=== PATIENT | female | born 1960 | race Caucasian/White ===

== ENCOUNTER 2018-10-11 06:27 | Emergency (ER) | payer OTHER, SELFPAY ==
[2018-10-11 06:30] VITALS: BP 147/96; PULSE 92; RESP 16; TEMP 36.7; O2SAT 98; BMI 26.7
--- NOTE | 2018-10-11 06:50 | EKG12_ITS ---
Test Reason : BACK/FLANK PAIN Blood Pressure : / mmHG Vent. Rate : 063 BPM Atrial Rate : 063 BPM P-R Int : 130 ms QRS Dur : 076 ms QT Int : 378 ms P-R-T Axes : 063 047 042 degrees QTc Int : 386 ms Normal sinus rhythm Normal ECG Confirmed by JUDI ABREU, DEVON ([id number]), subeditor [employer] ([id number]) on 10/14/2018 10:13:25 AM Referred By: LAVONNE Confirmed By:DEVON LAU MD
--- NOTE | 2018-10-11 06:51 | CT_ITS ---
STUDY: CT ABDOMEN AND PELVIS WITHOUT CONTRAST REASON FOR EXAM: Female, 58 years old. 1 week history of intermittent right flank pain. RADIATION DOSAGE (If Supplied By Facility): CTDIvol = ( 6.53 ) mGy, DLP = ( 293.54 ) mGycm TECHNIQUE: Transaxial images were obtained from the dome of the diaphragm to the symphysis pubis without oral contrast, and without intravenous contrast. Sagittal and coronal images were reconstructed. Individualized dose optimization techniques were used for this CT. COMPARISON: None. FINDINGS: The visualized lung bases are unremarkable. The visualized portions of the heart are within normal limits. There is a 1.5 cm x 1.5 cm cyst in the midportion of the right lobe of the liver. A 1 cm cyst is also seen in the left lobe of the liver. Normal gallbladder and extrahepatic biliary system. Normal spleen. Normal pancreas. Normal bilateral adrenal glands. Normal right kidney. Normal left kidney. Normal visualized stomach. Normal small intestine. There are scattered colonic diverticula consistent with diverticulosis. The appendix is visualized and appears normal. There is scattered atherosclerotic calcification of the abdominal aorta, without a demonstrated aneurysm. Normal inferior vena cava. Normal retroperitoneum. Normal urinary bladder. Phleboliths are seen in the pelvis. There is a small umbilical hernia containing fat. There are mild degenerative changes of the visualized lumbar spine. CT/Abdomen/Pelvis without Cont IMPRESSION: Small cysts in the liver. Electronically Signed: Willard Haas MD at 8:53 EST Tel [phone], Service support ,
--- NOTE | 2018-10-11 06:56 | NURSING ---
NO OLD EKGS
[2018-10-11 07:00] LABS: Absolute Neutrophil Count 5.1 X10^3/uL (2.0-7.7); Basophil# 0.03 X10^3/uL; Basophil% 0.4 % (0-1); Eosinophils% 1.3 % (0-5); Hematocrit 45.4 % (37-47); Hemoglobin 15.3 g/dl (12.0-15.0); Lymphocyte % 28.2 % (19-41); Mean Corp Hgb Conc 33.7 g/gl (32-36); Mean Corpuscular Hgb 31.2 pg (27.0-32.0); Mean Corpuscular Volume 92.5 fL (81-99); Mean Platelet Vol. 11.1 fl (6.2-12.0); Monocyte# 0.37 X10^3/uL; Monocyte% 4.7 % (0-10); Neutrophil % 65.3 % (47-70); Platelet Count 208 K/mm3 (150-450); RBC Distribution Width CV 12.2 % (11.6-14.6); Red Blood Count 4.91 M/mm3 (4.2-5.4); White Blood Count 7.8 K/mm3 (4.4-11.0)
[2018-10-11 07:01] LABS: POSITIVE COUNT NO; POSITIVE DIFFERENTIAL NO; POSITIVE MORPHOLOGY NO
[2018-10-11] MEDS: Ketorolac 30 MG/ML Syringe IV (07:02)
[2018-10-11] MEDS: 0.9% Normal Saline 1,000 ML 1000 ML IV (07:02)
[2018-10-11] MEDS: Ondansetron 4 MG/2 ML Vial IV (07:02)
--- NOTE | 2018-10-11 07:19 | ED.RN ---
PT REQUESTS TO BE ABLE TO WALK AROUND. IV PLACED ON POLE TO PROVIDE ABILITY TO AMBULATE. WILL MONITOR FOR PAIN MED EFFECTIVENESS
[2018-10-11 07:25] LABS: ALB/GLOB Ratio 1.3 RATIO (0.9-2.4); AST(SGOT) 13 U/L (15-37); Alanine Aminotransfer ALT/SGPT 21 U/L (13-56); Alkaline Phosphatase 82 U/L (45-117); Anion Gap 9 (5-15); BUN 12 mg/dL (7-18); BUN/Creat Ratio 12.9 RATIO (10-20); Calcium,Total 8.5 mg/dL (8.5-10.1); Chloride 103 mmol/L (98-107); Creatinine, Serum 0.93 mg/dL (0.55-1.02); EST Glomerular Filtration Rate 66 mL/min (>60); Est Glom Filt Rate - Afr Amer 79 mL/min (>60); Estimated Creatinine Clearance 49.76 ml/min; Globulin 3.1 g/dL (2.2-4.2); Glucose 132 mg/dL (74-106); Lipase 312 U/L (73-393); Potassium 3.8 mmol/L (3.5-5.1); Protein, Total 7.1 g/dL (6.4-8.2); Sodium Level 140 mmol/L (136-145)
[2018-10-11 09:16] LABS: Color, Urine Yellow (Yellow); Glucose, Dipstick Normal (Normal); Ketone-Dipstick 5 mg/dl (Negative); Leukocyte Esterase-Dipstick 25 /ul (Negative); Nitrite-Dipstick Negative (Negative); Occult Blood-Urine 10 /ul (Negative); Protein-Dipstick Negative (Negative); Specific Gravity, Urine 1.025 (1.002-1.030); Urine Bilirubin Dipstick Negative (Negative); Urine Clarity Clear (Clear); Urine Urobilinogen Normal (Normal)
[2018-10-11 09:21] LABS: Bacteria 1+ /hpf (None Seen); Mucous, Urine 1+ /hpf (<or=2+); Red Blood Cells-Urine 0-5 SEEN /hpf (0-5); Squamous Epithelial Cells - UA 0-5 SEEN /hpf (5-10); White Blood Cells 0-5 SEEN /hpf (0-5)
--- NOTE | 2018-10-11 09:38 | ED.VISSUMM ---
- ER Visit Summary Date of Service: 10/11/18 Chief Complaint: Back pain History of Present Illness: The patient is a 58 F with right middle back pain. Patient had similar symptoms one day last week and then they started again today around 2:30 AM. She feels like a crushing pain in that area. It does not radiate. Associated with some nausea but no other symptoms. Denies fever or other GI symptoms. Denies jaundice. Denies any respiratory symptoms or chest pain. Denies any medical history at all. She is a smoker. Physical Examination: Blood pressure 147/96. Otherwise vitals unremarkable. Afebrile. Patient is pacing and uncomfortable when she sits. Heart is regular rate and rhythm. No respiratory distress. Abdomen soft and nontender. Right flank slightly tender to palpation. Overlying skin is red from the patient's rubbing the area. There is no evidence of rash. Otherwise exam unremarkable. Test Results: EKG showed sinus rhythm rate 63. No sign of acute ischemia or infarction pattern. Troponin normal. Hemoglobin 15.3. Glucose 132. AST 13. Lipase normal. Urinalysis unremarkable. CT showed liver cysts but nothing else to explain her symptoms. Emergency Department Course and Treatment: Patient treated with fluids, Toradol, and Zofran while awaiting results. I was concerned for ureteral colic given the intermittent and severe pain plus the location. Her urine and CT showed no evidence of stones or infection. She has some hepatic cysts on her CT. Nothing to suggest infection or malignancy. Her liver function is good. Normal lipase. I am not convinced that these are causing her symptoms. I believe this is appropriate for outpatient follow-up. I have no reason to suspect a cardiac, respiratory, or vascular cause. The patient was worried about her heart, and I did check an EKG and troponin. These were normal. I do not believe she needs further testing at this time because she is low risk. I also considered myofascial causes and possible early shingles. Patient will be treated with anti-inflammatories and muscle relaxers. She will follow-up with her primary care doctor for her liver. Return right away for new or worsening issues. Patient voiced understanding and agreement. Treatment Plan: As above Disposition: Discharge Impression: 1. Right back pain 2. Hepatic cyst This note was generated with [employer] software. It may contain incorrect words, spelling, and punctuation that were not noted in review of the chart prior to signing ED Disposition - Plan for ED Patient: Chief Complaint: Flank Pain Referrals: Care Physician,No Primary [Primary Care Provider] -
--- NOTE | 2018-10-11 09:44 | ED.DEP ---
ED Disposition - Plan for ED Patient: Chief Complaint: Flank Pain Instructions: ED Flank Pain Uncertain Cause Prescriptions: Ibuprofen [Motrin] 600 mg PO Q8H PRN PRN #20 tab PRN Reason: Pain Cyclobenzaprine [Flexeril] 10 mg PO TID PRN PRN #20 tab PRN Reason: Pain Referrals: Osito Hoff DO [NON CLINICAL AFFILIATE] -
[2018-10-11 10:24] VITALS: BP 128/68; PULSE 76; RESP 18; O2SAT 97
--- OUTSIDE RECORDS SUMMARY | 2018-11-27 05:23 | XMS RPT_ITS ---
:1960 Author Organization [facility] Care Team Providers Name Role Phone INDIRA CHAVEZ (SYSTEMS SOFTWARE MANAGER) Attending Unavailable INDIRA CHAVEZ (SYSTEMS SOFTWARE MANAGER) Attending Unavailable INDIRA CHAVEZ (SYSTEMS SOFTWARE MANAGER) Referring Unavailable Sundar Velázquez Attending Unavailable Primay Care Physicia, No Primary Care Unavailable PROBLEMS PROBLEMS No Problem Records FoundPROCEDURES PROCEDURES No Procedure Records FoundRESULTS RESULTS PROGRESS Observed: 10/28/2018 Status: COMPLETED Source: [place] 9:57 AM [facility] REPOSITORY O ID: [id number] Author: Xu Tejada Service: (none) Author Type: Physician Type: Progress Notes Filed: 10/28/2018 10:26 AM Note Text: Patient presents with: Shingles: on mid-lower back x 3 weeks HPI: Rash: Location: Right lower back Duration: 3 weeks. She has been to the ER initially and f/u with IM twice for back pain and rash. Pruritis: No Pain: Yes-deep pain is bad. Squeezing pain inside when she lies down at night.. Not bothered by bending/twisting or touching. Change: More rash Bleeding/ulceration/blister/pustule: Blotchy hyperpigmentation. Feels she may be constipated, but bowels are still moving just not as well. No stomach upset. Contacts with rash: No Treatment: Heating pad. Lidocaine once. Ice. Ibuprofen. Finished valtrex. PAST MEDICAL HISTORY Diagnosis Date - Depression - Panic attacks MEDICATIONS: cyclobenzaprine (FLEXERIL) 10 mg tablet Take 1 tablet by mouth three times daily as needed for Muscle Spasm. ibuprofen (MOTRIN) 600 mg tablet Take 1 tablet by mouth every 8 hours as needed for Pain. ALLERGIES: ALLERGIES Allergen Reactions - Codeine Vomiting VITALS: BP 102/74 Pulse 81 Temp 36.8 ?C (98.2 ?F) (Left Tympanic) Resp 16 Wt 63.2 kg (139 lb 6.4 oz) SpO2 98% BMI 26.34 kg/m? PHYSICAL EXAM: GEN: pleasant, no acute distress, alert HEENT: PERRL, EOMI, sclera clear, MMM, no oral ulcers or growths. SKIN: Entire right lumbar back has lacy macular hyperpigmentation. BACK: Normal curvature of spine. No midline tenderness. No paraspinal tenderness. Straight leg test negative. Normal lower extremity strength and gait. ASSESSMENT/PLAN: 1. 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 She will stop or at least limit to 15 minutes per session and at milder temperature. CT abd from [facility] reviewed. No stones. She does have 2 liver cysts, diverticulosis, mild degenerative spine, scattered atherosclerosis of the aorta, and a tiny umbilical hernia. The back pain only bothers her when she lies down. Ibuprofen works after a while but does not last through the night. Change to - NAPROXEN 500 MG TABLET 1 hour before bed time. Recommended smoking cessation for visible atherosclerotic disease. F/u with primary care if pain is not improving. Xu Tejada MD CNOV Observed: 10/28/2018 Status: COMPLETED Source: [place] 9:45 AM [facility] REPOSITORY Office Visit (WSTR) ANDREW VARGAS ([id number]) 1960 F Date Time Provider Department 10/28/18 9:45 AM XU TEJADA [facility] During your visit today, we recorded the following information about you: Temperature Pulse Respiration Blood pressure 98.2 degrees 81/minute 16/minute 102/74 Weight 63.2 kg Xu Tejada MD 10/28/2018 10:26 AM Signed Patient presents with: Shingles: on mid-lower back x 3 weeks HPI: Rash: Location: Right lower back Duration: 3 weeks. She has been to the ER initially and f/u with IM twice for back pain and rash. Pruritis: No Pain: Yes-deep pain is bad. Squeezing pain inside when she lies down at night.. Not bothered by bending/twisting or touching. Change: More rash Bleeding/ulceration/blister/pustule: Blotchy hyperpigmentation. Feels she may be constipated, but bowels are still moving just not as well. No stomach upset. Contacts with rash: No Treatment: Heating pad. Lidocaine once. Ice. Ibuprofen. Finished valtrex. PAST MEDICAL HISTORY Diagnosis Date - Depression - Panic attacks MEDICATIONS: cyclobenzaprine (FLEXERIL) 10 mg tablet Take 1 tablet by mouth three times daily as needed for Muscle Spasm. ibuprofen (MOTRIN) 600 mg tablet Take 1 tablet by mouth every 8 hours as needed for Pain. ALLERGIES: ALLERGIES Allergen Reactions - Codeine Vomiting VITALS: BP 102/74 Pulse 81 Temp 36.8 ?C (98.2 ?F) (Left Tympanic) Resp 16 Wt 63.2 kg (139 lb 6.4 oz) SpO2 98% BMI 26.34 kg/m? PHYSICAL EXAM: GEN: pleasant, no acute distress, alert HEENT: PERRL, EOMI, sclera clear, MMM, no oral ulcers or growths. SKIN: Entire right lumbar back has lacy macular hyperpigmentation. BACK: Normal curvature of spine. No midline tenderness. No paraspinal tenderness. Straight leg test negative. Normal lower extremity strength and gait. ASSESSMENT/PLAN: 1. 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 She will stop or at least limit to 15 minutes per session and at milder temperature. CT abd from [facility] reviewed. No stones. She does have 2 liver cysts, diverticulosis, mild degenerative spine, scattered atherosclerosis of the aorta, and a tiny umbilical hernia. The back pain only bothers her when she lies down. Ibuprofen works after a while but does not last through the night. Change to - NAPROXEN 500 MG TABLET 1 hour before bed time. Recommended smoking cessation for visible atherosclerotic disease. F/u with primary care if pain is not improving. Xu Tejada MD Referring Provider: SELF [[id number]] Allergies As of Date: 10/28/2018 Noted Allergy Reaction CODEINE 03/13/2015 11 - Vomiting Date Reviewed: 10/28/2018 Reviewed by: Sowmya Mckeon Ma - Fully Assessed Reason for Visit: Shingles [870] Cmt: on mid-lower back x 3 weeks Reason For Visit History Recorded Primary Visit Diagnosis:Acute right-sided low back pain without sciatica [M54.5] Other Visit Diagnosis:Livedo reticularis [R23.1] Order(s):naproxen (NAPROSYN) 500 mg tabletTake 1 tablet by mouth twice daily as needed for Pain for up to 15 days.Disp: 30 tabletRfl: 0 Prescriptions as of 10/28/2018 Sig: CYCLOBENZAPRINE 10 MG TABLET Take 1 tablet by mouth three * IBUPROFEN 600 MG TABLET Take 1 tablet by mouth every * NAPROXEN 500 MG TABLET Take 1 tablet by mouth twice * Problem List As Of Date 10/28/2018 Noted Resolved Anxiety and depression [F41.9, F32.9] INVALID FOR* More... Tobacco abuse disorder [Z72.0] INVALID FOR* More... Prescriptions ordered this encounter Disp Refills Start End NAPROXEN 500 MG TABLET 30 t* 0 10/28/2018 11/12/2018 Route: ORAL Sig: Take 1 tablet by mouth twice daily as needed for Pain for up to 15 days. Follow-up and Disposition History Recorded Encounter Status:Closed by XU TEJADA MD on 10/28/18 12 LEAD ELECTROCARDIOGRAM Observed: 10/14/2018 Status: F Source: [place] 10:13 AM [facility] REPOSITORY [facility] Cardiovascular Services [address] [place] [address] 12 Lead EKG 10/11/18 0711 MR#: [id number] Acct: [id number] Name: ANDREW VARGAS Rep #: [id number] : 1960 58 From: Estiven Awan MD Attending Dr: Status: DEP ER Ordering Dr: Sundar Velázquez MD Date: 10/11/18 Location: ED Sex: F C Admitted: Test Reason : BACK/FLANK PAIN Blood Pressure : / mmHG Vent. Rate : 063 BPM Atrial Rate : 063 BPM P-R Int : 130 ms QRS Dur : 076 ms QT Int : 378 ms P-R-T Axes : 063 047 042 degrees QTc Int : 386 ms Normal sinus rhythm Normal ECG Confirmed by ESTIVEN AWAN MD ([id number]), fan mail editor SUNSHINE LOVE ([id number]) on 10/14/2018 10:13:25 AM Referred By: LAVONNE Confirmed By:ESTIVEN AWAN MD 10/14/18 1013 Date Estiven Awan MD CC: No Primary Care Physician; Sundar Velázquez MD Signed PROGRESS Observed: 10/13/2018 Status: COMPLETED Source: [place] 9:42 AM [facility] REPOSITORY O ID: [id number] Author: Indira (Willem) Older Service: (none) Author Type: Nurse Practitioner Type: Progress Notes Filed: 10/13/2018 9:47 AM Note Text: CC: Patient presents with: Rash HPI Andrew Vargas is a 58 year old female who presents today for rash to right mid back. She was seen for ER follow-up yesterday for this pain. Attributed to myofascial pain but Shingles was possible although no rash. Today patient reports she noticed a rash last night to her back. Pain has not improved at all, kept her up all night. REVIEW OF SYSTEMS See HPI PAST MEDICAL HISTORY Diagnosis Date - Depression - Panic attacks PAST SURGICAL HISTORY Procedure Laterality Date - NONE ALLERGIES Codeine MEDICATIONS cyclobenzaprine (FLEXERIL) 10 mg tablet Take 1 tablet by mouth three times daily as needed for Muscle Spasm. ibuprofen (MOTRIN) 600 mg tablet Take 1 tablet by mouth every 8 hours as needed for Pain. valACYclovir (VALTREX) 1 gram tab Take 1 tablet by mouth three times daily for 7 days. FAMILY HISTORY Problem Relation Age of Onset - Breast Cancer Mother - Cancer Father lung/stomach - Diabetes Maternal Grandmother - Cancer Maternal Grandfather rectal Social History Substance Use Topics - Smoking status: Current Every Day Smoker Packs/day: 0.50 Types: Cigarettes - Smokeless tobacco: Never Used - Alcohol use No PHYSICAL EXAM BP 140/100 Pulse 83 Temp 36.4 ?C (97.5 ?F) (Temporal Artery) Resp 14 SpO2 100% General Appearance: in no acute distress, alert, anxious Skin: Right mid back: very faint erythematous macules in reticular pattern. No papules, blisters, vesicles. No raised rash. Very tender with light touch. ASSESSMENT/PLAN: 1. Macular rash - ICD9: 782.1, ICD10: R21 (primary diagnosis) Rash appearnace is not consistent with Shingles. Patient is very insistent that this is Shingles and requesting treamtent. Will initiate Valtrex due to pain suspicious for Shingles. - I discussed disease etiology, clinical symptoms and treatment options with patient. I also discussed the concept of post herpetic neuralgia. - Valtrex 1 gm TID for 7 days. - Advised pt to avoid women, young children, immunocompromised people, elderlym usp patients while the vesicles are still unroofed and crusting over. - Follow-up in one week if no improvement in pain 2. Acute right-sided thoracic back pain - ICD9: 724.1, ICD10: M54.6 As above Prescription instructions reviewed with patient as applicable. Potential red flag symptoms discussed with the patient. Reviewed appropriate action plan to take if red flag symptoms occur. Patient agreeable to treatment plan. Indira Chavez APRN.WILLEM KIMBROUGHOV Observed: 10/13/2018 Status: COMPLETED Source: [place] 9:20 AM [facility] REPOSITORY Office Visit (INTMWS) ANDREW VARGAS ([id number]) 1960 F Date Time Provider Department 10/13/18 9:20 AM INDIRA CHAVEZ (SYSTEMS SOFTWARE MANAGER) INTMWS During your visit today, we recorded the following information about you: Temperature Pulse Respiration Blood pressure 97.5 degrees 83/minute 14/minute 140/100 Indira JACIEL Chavez 10/13/2018 9:47 AM Signed CC: Patient presents with: Rash HPI Andrew Vargas is a 58 year old female who presents today for rash to right mid back. She was seen for ER follow-up yesterday for this pain. Attributed to myofascial pain but Shingles was possible although no rash. Today patient reports she noticed a rash last night to her back. Pain has not improved at all, kept her up all night. REVIEW OF SYSTEMS See HPI PAST MEDICAL HISTORY Diagnosis Date - Depression - Panic attacks PAST SURGICAL HISTORY Procedure Laterality Date - NONE ALLERGIES Codeine MEDICATIONS cyclobenzaprine (FLEXERIL) 10 mg tablet Take 1 tablet by mouth three times daily as needed for Muscle Spasm. ibuprofen (MOTRIN) 600 mg tablet Take 1 tablet by mouth every 8 hours as needed for Pain. valACYclovir (VALTREX) 1 gram tab Take 1 tablet by mouth three times daily for 7 days. FAMILY HISTORY Problem Relation Age of Onset - Breast Cancer Mother - Cancer Father lung/stomach - Diabetes Maternal Grandmother - Cancer Maternal Grandfather rectal Social History Substance Use Topics - Smoking status: Current Every Day Smoker Packs/day: 0.50 Types: Cigarettes - Smokeless tobacco: Never Used - Alcohol use No PHYSICAL EXAM BP 140/100 Pulse 83 Temp 36.4 ?C (97.5 ?F) (Temporal Artery) Resp 14 SpO2 100% General Appearance: in no acute distress, alert, anxious Skin: Right mid back: very faint erythematous macules in reticular pattern. No papules, blisters, vesicles. No raised rash. Very tender with light touch. ASSESSMENT/PLAN: 1. Macular rash - ICD9: 782.1, ICD10: R21 (primary diagnosis) Rash appearnace is not consistent with Shingles. Patient is very insistent that this is Shingles and requesting treamtent. Will initiate Valtrex due to pain suspicious for Shingles. - I discussed disease etiology, clinical symptoms and treatment options with patient. I also discussed the concept of post herpetic neuralgia. - Valtrex 1 gm TID for 7 days. - Advised pt to avoid women, young children, immunocompromised people, elderlym usp patients while the vesicles are still unroofed and crusting over. - Follow-up in one week if no improvement in pain 2. Acute right-sided thoracic back pain - ICD9: 724.1, ICD10: M54.6 As above Prescription instructions reviewed with patient as applicable. Potential red flag symptoms discussed with the patient. Reviewed appropriate action plan to take if red flag symptoms occur. Patient agreeable to treatment plan. Indira Chavez APRN.CNP Referring Provider: INDIRA CHAVEZ (WILLEM) [[id number]] Allergies As of Date: 10/13/2018 Noted Allergy Reaction CODEINE 03/13/2015 11 - Vomiting Date Reviewed: 10/13/2018 Reviewed by: Kesha Ewing Manager Infusion - Fully Assessed Reason for Visit: Rash [[id number]] Primary Visit Diagnosis:Macular rash [R21] Other Visit Diagnosis:Acute right-sided thoracic back pain [M54.6] Order(s):valACYclovir (VALTREX) 1 gram tabTake 1 tablet by mouth three times daily for 7 days.Disp: 21 tabletRfl: 0 Prescriptions as of 10/13/2018 Sig: CYCLOBENZAPRINE 10 MG TABLET Take 1 tablet by mouth three * IBUPROFEN 600 MG TABLET Take 1 tablet by mouth every * VALACYCLOVIR 1 GRAM TABLET Take 1 tablet by mouth three * Problem List As Of Date 10/13/2018 Noted Resolved Anxiety and depression [F41.9, F32.9] INVALID FOR* More... Tobacco abuse disorder [Z72.0] INVALID FOR* More... Prescriptions ordered this encounter Disp Refills Start End VALACYCLOVIR 1 GRAM TABLET 21 t* 0 10/13/2018 10/20/2018 Route: ORAL Sig: Take 1 tablet by mouth three times daily for 7 days. Encounter Status:Closed by INDIRA CHAVEZ CNP on 10/13/18 PROGRESS Observed: 10/12/2018 Status: COMPLETED Source: [place] 7:51 AM [facility] [place] REPOSITORY [facility] ID: [id number] Author: Indira Flores) Scott Service: (none) Author Type: Nurse Practitioner Type: Progress Notes Filed: 10/12/2018 8:47 AM Note Text: CC: Patient presents with: possible shingles HPI Andrew Vargas is a 58 year old female who presents today for ER follow-up. Facility: [facility] Date of visit: 10/11/18 Reason for visit: Right sided mid back pain x 1 day Hospital course: EKG-NSR. Troponin, CBC, CMP, lipase normal. Urinalysis normal. CT abdomen/pelvis showed 1.5 x 1.5 cm cyst right lobe and 1 cm cyst left lobe. Diagnosis: ER physician felt symptoms were consistent with Shingles vs myofascial pain Discharge: Ibuprofen 800 mg and Flexeril Current symptoms: Continues to have back pain but much improved from yesterday. Located in right mid back without radiation. Described as squeezing Cause: nothing that the patient is aware of Pain is aggravated by nothing specific that patient is aware of. Associated symptoms: none Denies: weakness, numbness, tingling, morning stiffness, fever, bowel/bladder incontinence. Also denies history of cancer, history of osteoporosis, history of significant steroid use, poor posture and heavy lifting. Treatments tried: NSAIDs and heat with temporary relief. Past medical history is significant for lumbar strain REVIEW OF SYSTEMS General: no night sweats, no recurrent infections, no change in appetite, no change in energy and no significant changes in weight Respiratory: no cough, no wheezing, no shortness of breath, no hemoptysis Cardiovascular: no chest pain, no chest pressure, no palpitations, no swelling and no decrease in exercise tolerance GI: Negative for abdominal discomfort, blood in stools or black stools, change in bowel habit, heart burn, nausea, vomiting : Negative for dysuria, frequency, hematuria, hesitancy and urgency Skin: Negative for lesions, rash, and itching PAST MEDICAL HISTORY Diagnosis Date - Depression - Panic attacks PAST SURGICAL HISTORY Procedure Laterality Date - NONE ALLERGIES Codeine MEDICATIONS cyclobenzaprine (FLEXERIL) 10 mg tablet Take 1 tablet by mouth three times daily as needed for Muscle Spasm. ibuprofen (MOTRIN) 600 mg tablet Take 1 tablet by mouth every 8 hours as needed for Pain. FAMILY HISTORY Problem Relation Age of Onset - Breast Cancer Mother - Cancer Father lung/stomach - Diabetes Maternal Grandmother - Cancer Maternal Grandfather rectal Social History Substance Use Topics - Smoking status: Current Every Day Smoker Packs/day: 0.50 Types: Cigarettes - Smokeless tobacco: Never Used - Alcohol use No PHYSICAL EXAM BP 130/80 Pulse 71 Temp 36.6 ?C (97.8 ?F) (Temporal Artery) Resp 16 Wt 62.6 kg (138 lb) SpO2 99% BMI 26.07 kg/m? General Appearance: well appearing, in no acute distress, alert Pysch: affect is anxious Skin: No rashes or lesions Lungs: lungs clear to auscultation. No wheezing, rhonchi, rales Heart: RRR without murmur, gallop, or rubs. No ectopy Abdomen: Abdomen soft, non-distended. mild right sided abdominal tenderness with palpation. No guarding or rebound tenderness. Negative Atkinson's sign. Bowel sounds normal and active. No masses, organomegaly. Negative CVA tenderness Back: normal to inspection. No tenderness with palpation of thoracic and lumbar spine and mild tenderness with palpation of right thoracic paraspinal muscles. ROM: Full ROM with mild discomfort right mid back. Ext: no edema in LE bilaterally, good distal pulses ASSESSMENT/PLAN: 1. Mid back pain on right side - ICD9: 724.5, ICD10: M54.9 (primary diagnosis) Symptoms consistent with musculoskeletal pain, Shingles is possible but no rash at this point - Ice for localized tenderness - Warm moist heat for 20 min three times a day - Continue with NSAIDS and Muscle relaxant- as prescribed in ER - Patient given instructions: use of medications as ordered, intermittent rest, back care exercise program, improved posture and proper lifting techniques - Follow up in one if symptoms persist or sooner if worsen. Patient will call office right away if rash does appear 2. Liver cyst - ICD9: 573.8, ICD10: K76.89 Simple cysts, likely benign. LFT's normal. Pain unlikely secondary to cyst - Follow-up as above Prescription instructions reviewed with patient as applicable. Potential red flag symptoms discussed with the patient. Reviewed appropriate action plan to take if red flag symptoms occur. Patient agreeable to treatment plan. Indira Chavez APRN.WILLEM CNOV Observed: 10/12/2018 Status: COMPLETED Source: [place] 7:40 AM [facility] REPOSITORY Office Visit (INTMWS) SAM,ANDREW ([id number]) 1960 F Date Time Provider Department 10/12/18 7:40 AM SCOTT INDIRA (WILLEM) INTMWS During your visit today, we recorded the following information about you: Temperature Pulse Respiration Blood pressure 97.8 degrees 71/minute 16/minute 130/80 Weight 62.6 kg Indira Chavez APRN.CNP 10/12/2018 8:47 AM Addendum CC: Patient presents with: possible shingles HPI Andrew Vargas is a 58 year old female who presents today for ER follow-up. Facility: [facility] Date of visit: 10/11/18 Reason for visit: Right sided mid back pain x 1 day Hospital course: EKG-NSR. Troponin, CBC, CMP, lipase normal. Urinalysis normal. CT abdomen/pelvis showed 1.5 x 1.5 cm cyst right lobe and 1 cm cyst left lobe. Diagnosis: ER physician felt symptoms were consistent with Shingles vs myofascial pain Discharge: Ibuprofen 800 mg and Flexeril Current symptoms: Continues to have back pain but much improved from yesterday. Located in right mid back without radiation. Described as squeezing Cause: nothing that the patient is aware of Pain is aggravated by nothing specific that patient is aware of. Associated symptoms: none Denies: weakness, numbness, tingling, morning stiffness, fever, bowel/bladder incontinence. Also denies history of cancer, history of osteoporosis, history of significant steroid use, poor posture and heavy lifting. Treatments tried: NSAIDs and heat with temporary relief. Past medical history is significant for lumbar strain REVIEW OF SYSTEMS General: no night sweats, no recurrent infections, no change in appetite, no change in energy and no significant changes in weight Respiratory: no cough, no wheezing, no shortness of breath, no hemoptysis Cardiovascular: no chest pain, no chest pressure, no palpitations, no swelling and no decrease in exercise tolerance GI: Negative for abdominal discomfort, blood in stools or black stools, change in bowel habit, heart burn, nausea, vomiting : Negative for dysuria, frequency, hematuria, hesitancy and urgency Skin: Negative for lesions, rash, and itching PAST MEDICAL HISTORY Diagnosis Date - Depression - Panic attacks PAST SURGICAL HISTORY Procedure Laterality Date - NONE ALLERGIES Codeine MEDICATIONS cyclobenzaprine (FLEXERIL) 10 mg tablet Take 1 tablet by mouth three times daily as needed for Muscle Spasm. ibuprofen (MOTRIN) 600 mg tablet Take 1 tablet by mouth every 8 hours as needed for Pain. FAMILY HISTORY Problem Relation Age of Onset - Breast Cancer Mother - Cancer Father lung/stomach - Diabetes Maternal Grandmother - Cancer Maternal Grandfather rectal Social History Substance Use Topics - Smoking status: Current Every Day Smoker Packs/day: 0.50 Types: Cigarettes - Smokeless tobacco: Never Used - Alcohol use No PHYSICAL EXAM BP 130/80 Pulse 71 Temp 36.6 ?C (97.8 ?F) (Temporal Artery) Resp 16 Wt 62.6 kg (138 lb) SpO2 99% BMI 26.07 kg/m? General Appearance: well appearing, in no acute distress, alert Pysch: affect is anxious Skin: No rashes or lesions Lungs: lungs clear to auscultation. No wheezing, rhonchi, rales Heart: RRR without murmur, gallop, or rubs. No ectopy Abdomen: Abdomen soft, non-distended. mild right sided abdominal tenderness with palpation. No guarding or rebound tenderness. Negative Atkinson's sign. Bowel sounds normal and active. No masses, organomegaly. Negative CVA tenderness Back: normal to inspection. No tenderness with palpation of thoracic and lumbar spine and mild tenderness with palpation of right thoracic paraspinal muscles. ROM: Full ROM with mild discomfort right mid back. Ext: no edema in LE bilaterally, good distal pulses ASSESSMENT/PLAN: 1. Mid back pain on right side - ICD9: 724.5, ICD10: M54.9 (primary diagnosis) Symptoms consistent with musculoskeletal pain, Shingles is possible but no rash at this point - Ice for localized tenderness - Warm moist heat for 20 min three times a day - Continue with NSAIDS and Muscle relaxant- as prescribed in ER - Patient given instructions: use of medications as ordered, intermittent rest, back care exercise program, improved posture and proper lifting techniques - Follow up in one if symptoms persist or sooner if worsen. Patient will call office right away if rash does appear 2. Liver cyst - ICD9: 573.8, ICD10: K76.89 Simple cysts, likely benign. LFT's normal. Pain unlikely secondary to cyst - Follow-up as above Prescription instructions reviewed with patient as applicable. Potential red flag symptoms discussed with the patient. Reviewed appropriate action plan to take if red flag symptoms occur. Patient agreeable to treatment plan. JACIEL Howell APRN.CNP 10/12/2018 8:02 AM Signed Ibuprofen (Motrin, Advil, etc) or Naproxen (Aleve), take routinely for the next 7 days. Can also try topical medications such as Icy Hot, Biofreeze or Lidocaine. Non-medication measures: Ice for localized pain/tenderness and/or heat. Stretching and massage may also be beneficial. Avoid bedrest and stay as active as possible Follow-up in 1 week if no improvement or sooner if worsening Referring Provider: SELF [200] Allergies As of Date: 10/12/2018 Noted Allergy Reaction CODEINE 03/13/2015 11 - Vomiting Date Reviewed: 10/12/2018 Reviewed by: Kesha Ewing Manager Infusion - Fully Assessed Reason for Visit: possible shingles [Other] Primary Visit Diagnosis:Mid back pain on right side [M54.9] Other Visit Diagnosis:Liver cyst [K76.89] Prescriptions as of 10/12/2018 Sig: CYCLOBENZAPRINE 10 MG TABLET Take 1 tablet by mouth three * IBUPROFEN 600 MG TABLET Take 1 tablet by mouth every * Problem List As Of Date 10/12/2018 Noted Resolved Anxiety and depression [F41.9, F32.9] INVALID FOR* More... Tobacco abuse disorder [Z72.0] INVALID FOR* More... Other instructions from your clinician: Ibuprofen (Motrin, Advil, etc) or Naproxen (Aleve), take routinely for the next 7 days. Can also try topical medications such as Icy Hot, Biofreeze or Lidocaine. Non-medication measures: Ice for localized pain/tenderness and/or heat. Stretching and massage may also be beneficial. Avoid bedrest and stay as active as possible Follow-up in 1 week if no improvement or sooner if worsening Medications Discontinued During This Encounter sertraline (ZOLOFT) 50 mg tablet 90 t* 2 05/06/2016 10/12/2018 Route: ORAL Sig: Take 1 tablet by mouth once daily. Disc: Discontinued by Patient Encounter Status:Closed by INDIRA CHAVEZ CNP on 10/12/18 DISCHARGE INSTRUCTION Observed: 10/11/2018 Status: F [facility]: [facility] Medical Records Department [address] [place] [address] Discharge Instruction 10/11/18 0944 MR#: [id number] Acct: [id number] Name: ANDREW VARGAS Rep #: [id number] : 1960 58 From: Sundar Velázquez MD PCP: Care Physician, No Primary Status: DEP ER ED Disposition - Plan for ED Patient: Chief Complaint: Flank Pain Instructions: ED Flank Pain Uncertain Cause Prescriptions: Ibuprofen [Motrin] 600 mg PO Q8H PRN PRN #20 tab PRN Reason: Pain Cyclobenzaprine [Flexeril] 10 mg PO TID PRN PRN #20 tab PRN Reason: Pain Referrals: Osito Hoff DO [NON CLINICAL AFFILIATE] - What to do if you have Problems For any increased pain, shortness of breath, bleeding, nausea or vomiting, chest pain, or any unexpected problems, contact your Primary Care Provider. Call [facility] ([phone]) or report to the closest Emergency Room. Call 911 if necessary. 10/11/18 1211 <Electronically signed by Sundar Velázquez MD> Date Sundar Velázquez MD Cosigner Signature (If Indicated): Date CC: No Primary Care Physician EMERGENCY DEPARTMENT Observed: 10/11/2018 Status: F Source: [place] SUMMARY 12:11 PM [facility] REPOSITORY [facility] Medical Records Department [address] [place] [address] Emergency Department Summary 10/11/18 0938 MR#: [id number] Acct: [id number] Name: ANDREW VARGAS Rep #: [id number] : 1960 58 From: Sundar Velázquez MD PCP: Care Physician, No Primary Status: DEP ER - ER Visit Summary Date of Service: 10/11/18 Chief Complaint: Back pain History of Present Illness: The patient is a 58 F with right middle back pain. Patient had similar symptoms one day last week and then they started again today around 2:30 AM. She feels like a crushing pain in that area. It does not radiate. Associated with some nausea but no other symptoms. Denies fever or other GI symptoms. Denies jaundice. Denies any respiratory symptoms or chest pain. Denies any medical history at all. She is a smoker. Physical Examination: Blood pressure 147/96. Otherwise vitals unremarkable. Afebrile. Patient is pacing and uncomfortable when she sits. Heart is regular rate and rhythm. No respiratory distress. Abdomen soft and nontender. Right flank slightly tender to palpation. Overlying skin is red from the patient's rubbing the area. There is no evidence of rash. Otherwise exam unremarkable. Test Results: EKG showed sinus rhythm rate 63. No sign of acute ischemia or infarction pattern. Troponin normal. Hemoglobin 15.3. Glucose 132. AST 13. Lipase normal. Urinalysis unremarkable. CT showed liver cysts but nothing else to explain her symptoms. Emergency Department Course and Treatment: Patient treated with fluids, Toradol, and Zofran while awaiting results. I was concerned for ureteral colic given the intermittent and severe pain plus the location. Her urine and CT showed no evidence of stones or infection. She has some hepatic cysts on her CT. Nothing to suggest infection or malignancy. Her liver function is good. Normal lipase. I am not convinced that these are causing her symptoms. I believe this is appropriate for outpatient follow-up. I have no reason to suspect a cardiac, respiratory, or vascular cause. The patient was worried about her heart, and I did check an EKG and troponin. These were normal. I do not believe she needs further testing at this time because she is low risk. I also considered myofascial causes and possible early shingles. Patient will be treated with anti-inflammatories and muscle relaxers. She will follow- up with her primary care doctor for her liver. Return right away for new or worsening issues. Patient voiced understanding and agreement. Treatment Plan: As above Disposition: Discharge Impression: 1. Right back pain 2. Hepatic cyst This note was generated with [employer] software. It may contain incorrect words, spelling, and punctuation that were not noted in review of the chart prior to signing ED Disposition - Plan for ED Patient: Chief Complaint: Flank Pain Referrals: Care Physician,No Primary [Primary Care Provider] - What to do if you have Problems For any increased pain, shortness of breath, bleeding, nausea or vomiting, chest pain, or any unexpected problems, contact your Primary Care Provider. Call [facility] ([phone]) or report to the closest Emergency Room. Call 911 if necessary. 10/11/18 1211 <Electronically signed by Sundar Velázquez MD> Date Sundar Velázquez MD Cosigner Signature (If Indicated): Date CC: No Primary Care Physician URINALYSIS, COMPLETE Collected: 10/11/2018 Status: F Source: [facility] 8:55 AM [facility] REPOSITORY Order Comment: Has pt arrived? Y How was Urine Obtained? CLEAN CATCH TYPE CODE TESTS RESULT OUT OF RANGE REFERENCE UNITS LAB L400.3000 Yellow COLOR Normal Yellow LAB L400.3050 Clear Normal CLARITY Clear LAB L400.3200 Normal mg/dl Normal GLUCOSE, UR Normal LAB L400.3300 Negative mg/dL Normal BILIRUBIN URINE Negative LAB L400.3400 Negative mg/dl High 5 KETONE UR LAB L400.3465 1.002-1.030 Normal SP.GR. DIPSTX 1.025 LAB L400.3550 5.0 - 8.0 pH UR Normal 5.0 LAB L400.3600 Negative mg/dl PROT Normal DIPSTX Negative LAB L400.3700 Normal mg/dl Normal UROBILI Normal LAB L400.3750 Negative Normal NITRITE UR Negative LAB L400.3780 Negative /ul High 10 OCCULT BLOOD-UR LAB L400.3800 Negative /ul High LEUK 25 ESTERASE LAB L400.4050 0-5 /hpf WBC Normal 0-5 SEEN LAB L400.4100 0-5 /hpf Normal RBC-UA 0-5 SEEN LAB L400.4150 5-10 /hpf SQUAM Normal EPI 0-5 SEEN LAB L400.4300 None Seen /hpf 1+ Normal BACTERIA LAB L400.4350 <or=2+ /hpf 1+ Normal MUCUS, URINE Performed By: #### L400.0001 #### [facility] [address] [place], [address] ABDOMEN/PELVIS WITHOUT Observed: 10/11/2018 Status: F Source: [place] CONT 6:53 AM [facility] REPOSITORY [facility] Imaging Services [address] [place] [address] Abdomen/Pelvis without Cont MR#: [id number] Acct: [id number] Name: ANDREW VARGAS Rep #: [id number] : 1960 F 58 From: Willard Haas MD PCP: Care Physician, No Primary Status: REG ER Study: Abdomen/Pelvis without Cont Date of Exam: 10/11/18 Exam# [id number] Ordering Dr: Sundar Velázquez MD STUDY: CT ABDOMEN AND PELVIS WITHOUT CONTRAST REASON FOR EXAM: Female, 58 years old. 1 week history of intermittent right flank pain. RADIATION DOSAGE (If Supplied By Facility): CTDIvol = ( 6.53 ) mGy, DLP = ( 293.54 ) mGycm TECHNIQUE: Transaxial images were obtained from the dome of the diaphragm to the symphysis pubis without oral contrast, and without intravenous contrast. Sagittal and coronal images were reconstructed. Individualized dose optimization techniques were used for this CT. COMPARISON: None. FINDINGS: The visualized lung bases are unremarkable. The visualized portions of the heart are within normal limits. There is a 1.5 cm x 1.5 cm cyst in the midportion of the right lobe of the liver. A 1 cm cyst is also seen in the left lobe of the liver. Normal gallbladder and extrahepatic biliary system. Normal spleen. Normal pancreas. Normal bilateral adrenal glands. Normal right kidney. Normal left kidney. Normal visualized stomach. Normal small intestine. There are scattered colonic diverticula consistent with diverticulosis. The appendix is visualized and appears normal. There is scattered atherosclerotic calcification of the abdominal aorta, without a demonstrated aneurysm. Normal inferior vena cava. Normal retroperitoneum. Normal urinary bladder. Phleboliths are seen in the pelvis. There is a small umbilical hernia containing fat. There are mild degenerative changes of the visualized lumbar spine. CT/Abdomen/Pelvis without Cont IMPRESSION: Small cysts in the liver. Electronically Signed: Willard Haas MD at 8:53 EST Tel [phone], Service support , CC: No Primary Care Physician; Sundar Velázquez MD Meat Selector: Signed CBC W/DIFF, AUTOMATED Collected: 10/11/2018 Status: F Source: [facility] 6:42 AM [facility] REPOSITORY TYPE CODE TESTS RESULT OUT OF RANGE REFERENCE UNITS LAB L100.1000 4.4-11.0 K/mm3 Normal WBC 7.8 LAB L100.1200 4.2-5.4 M/mm3 Normal RBC 4.91 LAB L100.1300 12.0-15.0 g/dl High HGB 15.3 LAB L100.1400 37-47 % Normal HCT 45.4 LAB L100.1500 81-99 fL Normal MCV 92.5 LAB L100.1600 27.0-32.0 pg Normal MCH 31.2 LAB L100.1700 32-36 g/gl Normal MCHC 33.7 LAB L100.1810 11.6-14.6 % Normal RDW CV 12.2 LAB L100.1820 35.1-43.9 fl Normal RDW SD 41.0 LAB L100.1900 150-450 K/mm3 Normal PLT 208 LAB L100.2000 6.2-12.0 fl Normal MPV 11.1 LAB L100.2100 47-70 % Normal NEUT% 65.3 LAB L100.2200 19-41 % Normal LY% 28.2 LAB L100.2300 0-10 % Normal MONO% 4.7 LAB L100.2400 0-5 % Normal EO% 1.3 LAB L100.2500 0-1 % Normal BASO% 0.4 LAB L100.2550 0.0-0.9 % Normal IM GRAN % 0.100 Result Comment: IG% - Immature Granulocytes (promyelocytes, myelocytes and metamyelocytes) > 1% indicates that a LEFT SHIFT is Present. LAB L100.2620 2.0-7.7 X10 3/uL Normal Absolute Neut 5.1 LAB L100.2720 0.83-4.51 X10 3/ul Normal Absolute Lymph 2.20 Performed By: #### L100.0100 #### [facility] [address] [place], [address] COMPREHENSIVE METABOLIC Collected: 10/11/2018 Status: F Source: [facility] 6:42 AM [facility] REPOSITORY TYPE CODE TESTS RESULT OUT OF RANGE REFERENCE UNITS LAB L501.0100 74-106 mg/dL High GLU 132 Result Comment: Fasting Glucose result greater than or equal to 126 mg/dL suggests DIABETES MELLITUS per A.D.A. criteria. Please note revised GLUCOSE reference range effective 2017. LAB L501.1000 7-18 mg/dL Normal BUN 12 LAB L501.1100 0.55-1.02 mg/dL Normal CREAT,SERUM 0.93 Result Comment: The validity of the calculated GFR AND GFRAA in patients over 70 years has not been determined. Clinical correlation is essential. LAB L501.1110 >60 mL/min Normal EST GFR 66 Result Comment: Non- GFR Calc LAB L501.1115 >60 mL/min Normal EST GFR - AA 79 Result Comment: GFR Calc LAB L501.1255 ml/min Normal Estimated CRCL 49.76 LAB L501.1300 10-20 RATIO Normal BUN/CRE 12.9 LAB L501.1500 6.4-8. g/dL Normal 2 T PROT 7.1 LAB L501.1800 3.2-5. g/dL Normal 0 ALB 4.0 LAB L501.1950 2.2-4. g/dL Normal 2 GLOB 3.1 LAB L501.2000 0.9-2. RATIO Normal 4 A/G 1.3 LAB L501.2200 8.5-10 mg/dL Normal .1 CA 8.5 LAB L501.4100 15-37 U/L Low AST 13 LAB L501.4305 45-117 U/L Normal ALK P 82 LAB L501.4405 13-56 U/L Normal ALT 21 LAB L501.4600 0.20-1 mg/dL Normal .00 T BILI 0.60 LAB L501.5300 136-14 mmol/L Normal 5 NA 140 LAB L501.5600 3.5-5. mmol/L Normal 1 K 3.8 LAB L501.5900 98-107 mmol/L Normal CL 103 LAB L501.6100 21.0-3 mmol/L Normal 2.0 CO2 28.0 LAB L501.6200 5-15 Normal GAP 9 Performed By: #### L500.4050, L501.2450, L501.4010 #### [facility] [address] [place], [place], [address] LIPASE Collected: 10/11/2018 Status: F Source: [place] 6:42 AM [facility] REPOSITORY TYPE CODE TESTS RESULT OUT OF RANGE REFERENCE UNITS LAB L501.2450 73-393 U/L Normal LIPASE 312 Performed By: #### L500.4050, L501.2450, L501.4010 #### [facility] [address] [place], [place], [address] TROPONIN-I Collected: 10/11/2018 Status: F Source: [place] 6:42 [facility] REPOSITORY TYPE CODE TESTS RESULT OUT OF RANGE REFERENCE UNITS LAB L501.4010 <0.045 ng/mL Normal < 0.015 TROPONIN-I Result Comment: TROPONIN-I EXPECTED VALUES <0.045 Negative 0.045 - 0.590 Consistent with Cardiac Damage > OR = 0.600 Critical Value Not every elevated troponin is indicative of IA. These values should be used with clinical judgement in examining the patient's clinical picture for diagnosis. To establish a diagnosis of IA versus myocardial injury, there must be a demonstrated rise and/or fall in the troponin values, in addition to ischemic symptoms, EKG changes, new regional wall motion abnormality, and/or angiographical evidence. PLEASE NOTE: REFERENCE RANGES EDITED 18 Performed By: #### L500.4050, L501.2450, L501.4010 #### [facility] [address] [place], [address] ALLERGIES ALLERGIES DATE TYPE / CODE NAME / CODE REACTION SEVERITY SOURCE 10/11/2018 Drug No Known Unknown [facility] Allergy/4160 Allergies/F001 Hospital [address](SNOMED 670274(RXNORM) Repository CT) 03/13/2015 DRUG CODEINE Vomiting [facility] INGREDI/[address] [place] [address](SNOMED Repository CT) ENCOUNTERS ENCOUNTERS ADMIT/DISCHARGE ACCOUNT ADMITTING ENCOUNTER LOCATION SOURCE NUMBER CLASS 10/28/2018/10/30/20 [id number] Ambulatory [address] [place] Repository 10/13/2018/10/14/20 [id number] Ambulatory [address] Repository 10/12/2018/10/13/20 [id number] Ambulatory [address] Repository 10/11/2018/10/11/20 [id number] Emergency [facility] [address] [place] [address] ing:ED Repository PAYERS PAYERS ENCOUNTER GUARANTOR PAYER SUBSCRIBER SOURCE 10/11/2018 ANDREW D Primary ANDREW D [place] [id number] Insurance:[employer] PERRYDOB: [facility] Number: [id number] [address]Iyh: [phone]) [id number] Repository [phone] () Date:[id number] [address] [place] [id number]: 10/11/2018 Secondary NOT GIVENUNK [facility] Insurance:SELF PAY [facility] Number: Effective Repository Date:2018-10-11
== END 2018-10-11 10:26 | disposition home or self-care (01) ==
PROVIDERS: Emergency Provider Emergency Medicine
DX: R10.9 Unspecified abdominal pain (principal); K76.89 Other specified diseases of liver; R11.0 Nausea; F17.200 Nicotine dependence, unspecified, uncomplicated
CPT/HCPCS: 74176; 80053; 81001; 83690; 84484; 85025; 93005; 96361; 96374; 96375; 99284; J7030; A4216; J2405

== ENCOUNTER → 2020-08-30 11:36 | Outpatient (CLI) | payer OTHER, SELFPAY ==
[2020-08-30 15:30] LABS: Absolute Lymphocyte Count 2.24 X10^3/uL (0.83-4.51); Absolute Neutrophil Count 4.5 X10^3/uL (2.0-7.7); Basophil# 0.06 X10^3/uL; Basophil% 0.8 % (0-1); Eosinophil# 0.09 X10^3/uL; Eosinophils% 1.2 % (0-5); Hematocrit 46.7 % (37-47); Lymphocyte # 2.24 X10^3/ul (4.0); Lymphocyte % 30.1 % (19-41); Mean Corp Hgb Conc 32.1 g/dL (32-36); Mean Corpuscular Hgb 30.4 pg (27.0-32.0); Mean Corpuscular Volume 94.7 fL (81-99); Mean Platelet Vol. 11.1 fl (6.2-12.0); Monocyte# 0.57 X10^3/uL; Monocyte% 7.7 % (0-10); NRBC Flagged by Analyzer 0 % (0-5); Neutrophil # 4.48 X10^3/uL (2.7-7.7); Neutrophil % 60.1 % (47-70); Platelet Count 245 K/mm3 (150-450); RBC Distribution Width CV 11.9 % (11.6-14.6); RBC Distribution Width SD 41.4 fl (35.1-43.9); Red Blood Count 4.93 M/mm3 (4.2-5.4); White Blood Count 7.5 K/mm3 (4.4-11.0)
[2020-08-30 16:36] LABS: ALB/GLOB Ratio 1.3 RATIO (0.9-2.4); AST(SGOT) 16 U/L (15-37); Alanine Aminotransfer ALT/SGPT 25 U/L (13-56); Albumin, Serum 4.2 g/dL (3.2-5.0); Alkaline Phosphatase 90 U/L (45-117); Anion Gap 4 (5-15); BUN 12 mg/dL (7-18); BUN/Creat Ratio 15.4 RATIO (10-20); Calcium,Total 8.7 mg/dL (8.5-10.1); Chloride 103 mmol/L (98-107); Creatinine, Serum 0.78 mg/dL (0.55-1.02); EST Glomerular Filtration Rate 80 mL/min (>60); Est Glom Filt Rate - Afr Amer 97 mL/min (>60); Globulin 3.3 g/dL (2.2-4.2); Glucose 96 mg/dL (74-106); Potassium 4.3 mmol/L (3.5-5.1); Protein, Total 7.5 g/dL (6.4-8.2); Sodium Level 137 mmol/L (136-145); T4 Free Direct 1.26 ng/dL (0.76-1.46); Thyroid Stim Hormone (TSH) 0.58 uIU/mL (0.358-3.74)
== END ==
PROVIDERS: PCP Family Medicine; Referring Provider Family Medicine; Visit Provider Family Medicine
DX: E07.9 Disorder of thyroid, unspecified (principal); F17.200 Nicotine dependence, unspecified, uncomplicated
CPT/HCPCS: 36415; 80053; 84439; 84443; 85025

== ENCOUNTER → 2020-09-11 07:22 | Outpatient (CLI) | payer OTHER, SELFPAY ==
--- NOTE | 2020-09-11 07:35 | RAD_ITS ---
STUDY: X-RAY CHEST REASON FOR EXAM: Female, 60 years old. SOB, SORE THROAT, PT IS A SMOKER TECHNIQUE: PA and lateral views of the chest. COMPARISON: None. FINDINGS: The lungs are clear and expanded. There is no demonstrated pleural abnormality. Normal size heart. Normal mediastinum and melanie. Normal visualized pulmonary arteries. Normal visualized aortic arch and descending thoracic aorta. Normal visualized thoracic spine. Normal visualized ribs, clavicles, and shoulders. There is no demonstrated abnormality of the visualized soft tissue structures of the upper abdomen. RAD/Chest PA and Lateral IMPRESSION: Normal x-ray examination of the chest. Electronically Signed: Jessee Eral MD at 14:31 EST , Service support ,
--- NOTE | 2020-09-11 07:40 | US_ITS ---
STUDY: THYROID ULTRASOUND REASON FOR EXAM: Female, 60 years old. Chronic sore throat -- asymmetrical thyroid TECHNIQUE: Ultrasound evaluation of the thyroid was performed with real-time and static parada-scale imaging. COMPARISON: None. FINDINGS: RIGHT LOBE: The right lobe of the thyroid gland measures 4.4 cm x 1.9 cm x 0.9 cm. There is a homogeneous echotexture. There is a 4 mm x 4 mm x 2 mm cyst in the lower pole. There are 2 adjacent hypoechoic solid nodules in the upper pole of the right lobe of thyroid measuring 4 mm x 4 mm x 3 mm and 4 mm x 3 mm x 3 mm. LEFT LOBE: The left lobe of the thyroid gland measures 4.3 cm x 2.4 cm x 1.8 cm. There is a homogeneous echotexture. A dominant hypoechoic solid nodule measuring 2 cm x 1.8 cm x 1.2 cm is seen in lateral mid pole left lobe of the thyroid with the very nodular and intralobular nodular vascularity. A biopsy is recommended. There is also evidence of a 9 mm x 9 mm x 5 mm hypoechoic solid nodule in the upper pole as well as a 5 mm x 6 mm x 3 mm well-defined solid nodule in the upper pole of the left lobe. ISTHMUS: The isthmus measures 3 mm. Incidental note is made of a 2 cm x 0.9 cm x 0.5 cm benign-appearing lymph node in the left cervical region. US/Thyroid IMPRESSION: 2 cm x 1.8 cm x 1.2 cm complex nodule in the midpole of the left lobe of the thyroid as described. Biopsy is recommended. Subcentimeters bilateral thyroid nodules. Electronically Signed: Willard Haas, at 10:24 EST , Service support ,
--- NOTE | 2020-09-11 18:57 | PFTCOMP_ITS ---
COMPLETE PULMONARY FUNCTION TEST INTERPRETATION Brief HPI: Patient is a 60 year old female, currently under the care of Dr. Gee, who presents to [facility] for complete pulmonary function tests secondary to diagnosis of nicotine dependence. Respiratory therapist reports good effort and reproducible results. Interpretation: Forced expiration spirometry shows no large airways obstructive ventilatory defect with an FEV1 of 100% predicted. There is no significant bronchodilator response by strict ATS criteria. Spirograms are of good quality and plateau normally. The respiratory flow volume loop shows a normal pattern. Lung volumes by body plethysmography show a normal total lung capacity at 4.17 L, 97% predicted. All other lung volumes are within normal limits. Diffusion capacity by carbon monoxide is normal at 103% predicted. The airway resistance is normal. No previous pulmonary function tests were available for review. Impression: Normal pulmonary function studies
== END ==
PROVIDERS: PCP Family Medicine; Referring Provider Family Medicine; Visit Provider Family Medicine
DX: E07.9 Disorder of thyroid, unspecified (principal); F17.200 Nicotine dependence, unspecified, uncomplicated
CPT/HCPCS: 71046; 76536; 94060; 94726; 94729

== ENCOUNTER → 2020-09-18 | Outpatient (CLI) | payer OTHER, SELFPAY | END | disposition home or self-care (01) | LOC: LABSPEC 16:15 | PROVIDERS: PCP Family Medicine; Visit Provider Family Medicine | DX: R09.89 Other specified symptoms and signs involving the circulatory and respiratory systems (principal) | CPT/HCPCS: 87635; U0003 ==

== ENCOUNTER → 2020-09-23 15:41 | Outpatient (CLI) | payer OTHER, SELFPAY | PROVIDERS: PCP Family Medicine; Visit Provider Family Medicine | DX: Z20.828 Contact with and (suspected) exposure to other viral communicable diseases (principal) | CPT/HCPCS: 87633; 87635; U0003 ==

== ENCOUNTER → 2020-10-09 | Outpatient (CLI) | payer OTHER, SELFPAY ==
[2020-10-09 13:27] VITALS: BMI 25.4
--- NOTE | 2020-10-09 13:30 | ASPS_PTH ---
PATIENT: ANDREW VARGAS [facility]: [facility] U#:[id number] AGE/SX: 60/F ROOM: RE10/09/[address]: Dr. Lee Tran MD : 1960 BED: DIS: 10/09/2020 SPEC #: [id number] RECD: 10/10/20 08:00 STATUS: DENIS ALVERTO #: [id number] LISA: 10/09/20 13:[address]: Lee Tran DEPT: CYTOLOGY RECD BY: Florencia Wilkinson ENTERED: 10/10/20 08:01 SP TYPE: ASPIRATION OTHR DR: Dr. Stanley Gee MD Tissues: A - Thyroid gland, NOS B - Thyroid gland, NOS Procedures: Special Stain Group II Cytology Other HEADER OPERATION: Left thyroid FNA x2 PRE-OP DIAGNOSIS: Bilateral thyroid nodules TISSUE SUBMITTED: A - Left mid lateral thyroid x8, B - Left superior thyroid x2 DIAGNOSIS CYTOLOGY A. Left mid lateral thyroid nodule, FNA (smears): Consistent with benign follicular nodule with cystic changes. Adequate for evaluation. B. Left superior thyroid nodule, FNA (smears): Consistent with benign follicular/colloid nodule. Adequate for evaluation. MAKI:bola 10/11/20 COMMENT Correlation with clinical, radiologic findings and appropriate follow up are necessary. CYTOLOGY STUDY Slides are reviewed. CYTOLOGY GROSS A - Received are eight smears labeled with the patient's name and designated per the requisition as left mid lateral thyroid. Submitted for staining. B - Received are two smears labeled with the patient's name and designated per the requisition as left superior thyroid. Submitted for staining. / bola 10/10/20 TC:5 CPT: 06055 x2
== END | disposition home or self-care (01) ==
LOC: LABSPEC 15:51
PROVIDERS: PCP Family Medicine; Referring Provider Surgery; Visit Provider Surgery
DX: E04.1 Nontoxic single thyroid nodule (principal)
CPT/HCPCS: 88161; 88313

== ENCOUNTER 2022-01-05 15:18 | Outpatient (CLI) | payer OTHER, SELFPAY | END 2022-01-05 23:59 | disposition home or self-care (01) | LOC: LABSPEC 15:22 | PROVIDERS: PCP Family Medicine; Visit Provider Family Medicine | DX: Z20.822 Contact with and (suspected) exposure to COVID-19 (principal) | CPT/HCPCS: 87635; U0003; U0005 ==